=== PATIENT | male | born 1945 | race Caucasian/White ===

== ENCOUNTER 2016-08-12 15:31 | Emergency (ER) | payer BC, MEDICARE ==
[2016-08-12] MEDS ORDERED: cefTRIAXone 1 GM, Lidocaine 1% 2.1 ML IM SCH ×2 (16:30)
--- NOTE | 2016-08-12 16:55 | EDM.PDOC ---
ED HPI GENERAL MEDICAL PROBLEM - General Chief Complaint: Lower Extremity Injury/Pain Stated Complaint: LOWER LEFT LEG SWOLLEN Time Seen by Provider: 08/12/16 16:23 Source of Information: Reports: Patient History Limitations: Reports: No Limitations - History of Present Illness INITIAL COMMENTS - FREE TEXT/NARRATIVE: The patient presents with left lower leg edema, pain and erythema. He has broken that leg twice and had surgery a few times. He has a history of cellulitis in that leg. He says this has been going on for about 6 days. He feels a little feverish but no other symptoms. Onset: Gradual Duration: Day(s): (6) Location: Reports: Upper Extremity, Left (lower leg) Quality: Reports: Sharp Severity: Mild Improves with: Reports: None Worsens with: Reports: None Associated Symptoms: Reports: Fever/Chills Left Lower Leg Pain Score (Numeric/FACES): 6 - Related Data Allergies Allergy/AdvReac Type Severity Reaction Status Date / Time No Known Allergies Allergy Verified 08/12/16 16:19 Home Meds: Home Meds Aspirin [Halfprin] 81 mg PO DAILY 10/04/15 [History] Multivits,Ca,Min/Iron/FA/Lycop [Centrum Men's Tablet] 1 tab PO DAILY 10/04/15 [ History] Cephalexin [Keflex] 500 mg PO Q6HR #40 cap 08/12/16 [Rx] Past Medical History HEENT History: Reports: Other (See Below) Other HEENT History: states has dental implants. Musculoskeletal History: Reports: Back Pain, Chronic, Fracture - Infectious Disease History Infectious Disease History: Reports: Chicken Pox, Measles - Past Surgical History Musculoskeletal Surgical History: Reports: Other (See Below) Other Musculoskeletal Surgeries/Procedures:: left ankle surgery Social & Family History - Tobacco Use Smoking Status *Q: Former Smoker Used Tobacco, but Quit: Yes Month Tobacco Last Used: 30 Second Hand Smoke Exposure: No - Caffeine Use Caffeine Use: Reports: Coffee - Alcohol Use Days Per Week of Alcohol Use: 4 Number of Drinks Per Day: 4 Total Drinks Per Week: 16 - Recreational Drug Use Recreational Drug Use: No Drug Use in Last 12 Months: No Review of Systems - Review of Systems Review Of Systems: See Below Constitutional: Reports: Fever Eyes: Reports: No Symptoms Ears: Reports: No Symptoms Nose: Reports: No Symptoms Mouth/Throat: Reports: No Symptoms Respiratory: Reports: No Symptoms Cardiovascular: Reports: No Symptoms GI/Abdominal: Reports: No Symptoms Genitourinary: Reports: No Symptoms Musculoskeletal: Reports: Other (Redness and swelling) Trauma Exam - Physical Exam Exam: See Below Exam Limited By: No Limitations General Appearance: Reports: Alert, No Apparent Distress Head: Reports: Atraumatic, Normocephalic Ears: Reports: Normal External Exam Nose: Reports: Normal Inspection Respiratory Exam: Reports: No Respiratory Distress, Lungs Clear, Normal Breath Sounds Cardiovascular: Reports: Regular Rate, Rhythm, No Edema, No Murmur GI/Abdominal: Reports: Soft, Non-Tender, No Organomegaly, No Mass Extremities: Other (Scars from prior surgery. Redness, swelling and pain upon palpation.) Course - Vital Signs Last Recorded V/S: Last Vital Signs Temp 99 F 08/12/16 16:13 Pulse 92 08/12/16 16:13 Resp 18 08/12/16 16:13 BP 159/82 H 08/12/16 16:13 Pulse Ox 100 08/12/16 16:13 - Orders/Labs/Meds Orders: Active Orders 24 hr Category Date Time Status cefTRIAXone [Rocephin] 1 gm Med 08/12/16 16:30 Active Lidocaine 1% 2.1 ml IM Q24H Medication Orders Ceftriaxone Sodium 1 gm/ (Lidocaine HCl 2.1 ml) 0 gm IM Q24H [facility] [place] Last Admin: 08/12/16 16:45 Dose: 2.1 inj Meds: Medications Generic Name Dose Route Start Last Admin Trade Name Freq PRN Reason Stop Dose Admin Ceftriaxone Sodium 1 gm/ 0 gm 08/12/16 16:30 08/12/16 16:45 Lidocaine HCl 2.1 ml IM 2.1 inj Q24H [facility] [place] Administration - Re-Assessments/Exams Free Text/Narrative Re-Assessment/Exam: 08/12/16 16:53 I ordered a shot of rocephin and I will get him some keflex. Departure - Departure Time of Disposition: 16:55 Disposition: Home, Self-Care 01 Condition: good Clinical Impression: Cellulitis of left leg - Discharge Information Prescriptions: Cephalexin [Keflex] 500 mg PO Q6HR #40 cap Referrals: PCP,None [Primary Care Provider] - Tonie Ozuna PA-C [[employer]] - 1 Week Forms: ED Department Discharge Additional Instructions: Take the keflex 4 times per day for 10 days. Put warm compresses on the area 2 times per day for 5 days. Follow up with your provider or Tonie Ozuna if you are not better in about 1 week. Please return if you are worse. - My Orders Last 24 Hours: My Active Orders 08/12/16 16:30 cefTRIAXone [Rocephin] 1 gm Lidocaine 1% 2.1 ml IM Q24H - Assessment/Plan Last 24 Hours: My Active Orders 08/12/16 16:30 cefTRIAXone [Rocephin] 1 gm Lidocaine 1% 2.1 ml IM Q24H
[2016-08-12 17:32] VITALS: BP 151/90
== END 2016-08-12 17:20 | disposition home or self-care (01) ==
LOC: JD.ED 15:31
DX: L03.116 Cellulitis of left lower limb (principal); Z79.82 Long term (current) use of aspirin; Z87.891 Personal history of nicotine dependence
CPT/HCPCS: 96372; 99284; J0696; 99283